=== PATIENT | male | born 1990 | race Caucasian/White ===

== ENCOUNTER 2019-05-09 05:42 | Emergency (ER) | payer MEDICAID, OTHER ==
[~2019-05-09] VITALS: Ht 180.3 cm; Wt 61.1 kg
[2019-05-09 05:44] VITALS: BP 119/70
[2019-05-09] MEDS ORDERED: KETOROLAC 30 MG/1 ML ONE (06:13)
[2019-05-09] MEDS ORDERED: KETOROLAC 30 MG/1 ML IM ONE (06:30)
== END 2019-05-09 06:30 | disposition home or self-care (01) ==
LOC: ED 06:19
DX: K08.89 Other specified disorders of teeth and supporting structures (principal)
CPT/HCPCS: 96372; 99283; J1885